=== PATIENT | female | born 1960 | race Caucasian/White ===

== ENCOUNTER 2016-11-09 14:14 | Inpatient (IN) | payer OTHER ==
--- NOTE | ~2016-11-09 | HP ---
History And Physical [id number] [place]. [address] NAME: BRIONNA CAMPUZANO : 60 STATUS : DIS IN PAT#: [id number] AGE: 56 ADM/REG DATE : 11/09/16 MR#: [id number] REPORT SERV DATE: 11/09/16 DICTATED BY: RADHA LUGO DATE: 11/09/16 REPORT STATUS : Draft TRANSCRIBED BY: MODL DATE: 11/09/16 DATE OF ADMISSION: 11/09/2016 CHIEF COMPLAINT: Back pain, nausea, vomiting, hyperglycemia, and dysuria. HISTORY OF PRESENT ILLNESS: The patient is a 55-year-old female. She has a past medical history significant for diabetes, chronic back pain, hyperlipidemia, and hypothyroidism. She presents as a referral from her PCP, who I spoke to earlier today. The patient has had suspected UTI by UA. Culture results are unavailable. She has been tried on Macrobid and most recently Bactrim. For the past several days, her symptoms have not improved. She has had poor p.o. intake, nausea with some vomiting, some diarrhea, subjective fever, and hyperglycemia in the 400 to 500s. She was sent for direct admission for the evaluation and treatment of her UTI, and hyperglycemia. She does have a past history of renal stones. She states that she is not having the intense pain that she had with stones, although she has had some of the dysuria symptoms. No documented temperature at home. She states her blood sugars have been fluctuating for the past several weeks due to her erratic p.o. intake and the presumable UTI. PAST MEDICAL HISTORY: As covered above. PAST SURGICAL HISTORY: She had a toe surgery with resultant Step MRSA, tubal, cholecystectomy, and left wrist surgery. CURRENT MEDICATIONS: Lipitor 40, Flexeril 10 q.6 p.r.n., Neurontin 600 at h.s., hydrocodone 7.5/325 t.i.d., Tresiba 25 at bedtime, Synthroid 200, Imodium 2 mg p.r.n., Glucophage 1000 b.i.d., Pamelor 10, Prilosec 20 b.i.d., Januvia 100, and Bactrim DS. ALLERGIES: PENICILLIN, MORPHINE, CODEINE, ASPIRIN, TRAMADOL, STADOL, AND TORADOL. FAMILY HISTORY: Both parents are , father from lung cancer, and mother from blood clot. SOCIAL HISTORY: She quit tobacco quite a few years ago. Social drinker. REVIEW OF SYSTEMS: HEENT: No complaints. CARDIOVASCULAR: No complaints. PULMONARY: No shortness of breath or cough. GI: As covered in the HPI. : As covered in the HPI. NEUROMUSCULOSKELETAL: As covered in the HPI. Otherwise, 14-point review of systems is negative. PHYSICAL EXAMINATION: VITAL SIGNS: BP 185/86, pulse 87, temperature 97.9, and blood sugars 404. History And Physical [address] [address] NAME: BRIONNA CAMPUZANO : 60 STATUS : DIS IN [facility]#: [id number] AGE: 56 ADM/REG DATE : 11/09/16 MR#: [id number] REPORT SERV DATE: 11/09/16 DICTATED BY: RADHA LUGO DATE: 11/09/16 REPORT STATUS : Draft TRANSCRIBED BY: MODL DATE: 11/09/16 GENERAL: She is awake, alert, and oriented. HEENT: Normocephalic, atraumatic. Sclerae nonicteric. NECK: Supple. HEART: Regular rate and rhythm. LUNGS: Clear to auscultation. ABDOMEN: Obese. Benign. EXTREMITIES: 1+ edema. LABORATORY DATA: No lab or urine cultures to review. ASSESSMENT: 1. Hyperglycemia. 2. Probable urinary tract infection. PLAN: 1. Given the patient's refractory outpatient treatment for hyperglycemia, previous history of stone, we would proceed with re-culture. CT to rule out stone or pyelo. Antibiotics. Awaiting urine cultures. 2. We will treat her hyperglycemia. 3. Full lab, IV fluid if necessary. 4. Continue home medications as appropriate. TLF/MODL Radha Lugo M.D. / [id number] CC: Radha Lugo M.D. [facility] DAILY
--- NOTE | ~2016-11-09 | DS ---
Discharge Summary [id number] [facility] [place]. [address] NAME: BRIONNA CAMPUZANO : 60 STATUS : DIS IN PAT#: [id number] AGE: 56 ADM/REG DATE : 11/09/16 MR#: [id number] REPORT SERV DATE: 11/14/16 DICTATED BY: RADHA LUGO DATE: 11/14/16 REPORT STATUS : Draft TRANSCRIBED BY: MODL DATE: 11/14/16 ADMISSION DATE: 11/09/2016 DISCHARGE DATE: 11/14/2016 FINAL HOSPITAL DIAGNOSES: 1. Urinary tract infection/pyelo, resolved. 2. Diabetes. 3. Hypertension. 4. Hyperlipidemia. CONSULTATIONS: senior health educator. PROCEDURES: CT scan done to rule out stone or pyelo on 11/09/2016 showing no evidence of kidney stone, liver mildly enlarged with some fatty changes, mild atherosclerosis. CURRENT PHYSICAL FINDINGS AND HPI: Please see dictated H and P by myself. In brief, the patient is a 55-year-old female with above history, was accepted as a direct admit from her PCP after failing outpatient treatment for UTI, questioned with severity of symptoms she may have pyelonephritis. Vital signs at the time of admission, BP was 185/86, subsequent blood pressures were averaging 150s to 160s, temp 97.9, and she remained afebrile during her hospital stay, heart rates were in the 70s to 80s. LABORATORY DATA: Initial procalcitonin was 0.08. Initial BMP was unremarkable. Blood sugar, however, was 382. Magnesium was slightly low at 1.2, which was corrected. LFTs were unremarkable. TSH was 4.3, lipase was 102, A1c was 13.1, lactate was 1.4. White count was 7.8 with a normal H and H. Urinalysis actually showed 30 protein, trace LE, 5 wbc's. There were no urine cultures outpatient to review. Her urine culture here was not sent given it was benign and her blood cultures here were negative at four days. HOSPITAL COURSE: The patient was clearly feeling ill and hyperglycemic on admission and also hypertensive. She was initially started on Levaquin for suspicion of failed UTI treatment, rule out pyelo while her CT scan was ordered. A1c and above lab was also ordered. The patient started developing itching after administration of the Levaquin and it was discontinued. Although, her lab work looked fairly benign, there was no CT yet. So, she was given some Benadryl and started on aztreonam. Subsequently, the following day, when her CT scan information was available, the antibiotics were switched back to Bactrim DS as that had been the second treatment that she had been started on outpatient. senior health educator saw her. Her insulin was titrated up. Bladder scan was done to rule out retention. She then in the next hospital day, started developing itching again. It was then determined that, she had received Protonix both times prior to the itching, so this was discontinued. She did require small amount of Phenergan and then had no further nausea, and was able to tolerate a regular diet. Orthostatics were checked after volume replacement, they were fine. senior health educator saw her. They continued to titrate up her insulin, PT assessed her with good results. She was ambulatory. She was started on lisinopril on 11/13/2016 for her hypertension. On 11/14/2016, she was re-evaluated and felt stable for discharge. I discussed several issues with her. She had previously had hypotension with a Prinivil, Discharge Summary [address] [address] NAME: BRIONNA CAMPUZANO : 60 STATUS : DIS IN PAT#: [id number] AGE: 56 ADM/REG DATE : 11/09/16 MR#: [id number] REPORT SERV DATE: 11/14/16 DICTATED BY: RADHA LUGO DATE: 11/14/16 REPORT STATUS : Draft TRANSCRIBED BY: GALI DATE: 11/14/16 diuretic combination, but given her diabetes and her high blood pressures here, she was willing to start the Prinivil back, and her blood pressures were averaging closer to the 140s. I also discussed her A1c, she did not feel her home medications were controlling her sugar. She is agreeable to discharging on the current dose of insulin we are giving here to follow up with her PCP for further advice. So, following Rx is given, Prinivil 10 one per day and Humalog FlexPen. She is currently doing a level 3 plus 12 units meal coverage. She will continue her Lantus, which she has at home, but we will increase the dose to 28 b.i.d. her current dose here. She will otherwise do Lipitor 40, Neurontin 600 at bedtime, Synthroid 100, Pamelor 10, Prilosec 20 b.i.d., Flexeril 10, hydrocodone 7.5/325, and Imodium 2. No further antibiotics were given as she has had not nearly a week of treatment and her symptoms have resolved and pyelo was not demonstrated on the CT. She is to follow up with her PCP in 7 to 10 days. TLF/MODL Radha Lugo M.D. / [id number] CC: Radha Lugo M.D. [facility]
[2016-11-09] MEDS ORDERED: NOR10 PO (14:55)
[2016-11-09] MEDS ORDERED: LIPITOR40 PO (14:55)
[2016-11-09] MEDS ORDERED: SYNTHROID200 MCG PO (14:55)
[2016-11-09] MEDS ORDERED: PRILO PO (14:55)
[2016-11-09] MEDS ORDERED: JANUVIA100 MG PO (14:55)
[2016-11-09] MEDS ORDERED: BACDS PO (14:56)
[2016-11-09] MEDS ORDERED: GLUCOPHAGE1000 MG PO (14:56)
[2016-11-09] MEDS ORDERED: NEUR600 PO (14:56)
[2016-11-09] MEDS ORDERED: IMOD PO (14:57)
[2016-11-09] MEDS ORDERED: TRESIBA FL100 UNIT/1 SC (14:57)
[2016-11-09] MEDS ORDERED: FLEX PO (14:57)
[2016-11-09] MEDS ORDERED: NORCO1 TA2 PO (14:57)
[2016-11-09 16:40] LABS: BASOPHILS 0.8 %; BASOPHILS ABSOLUTE 0.06 10/3/uL (0.0-0.16); EOSINOPHILS 4.7 %; EOSINOPHILS ABSOLUTE 0.37 10/3/uL (0.0-0.53); HEMATOCRIT 35.7 % (36.0-48.0); HEMOGLOBIN 12.1 g/dL (12.0-16.0); IMMATURE GRANULOCYTES 0.3 %; IMMATURE GRANULOCYTES ABSOLUTE 0.02 10/3/uL (0.0-0.11); LYMPHOCYTES 24.8 %; LYMPHOCYTES ABSOLUTE 1.94 10/3/uL (0.67-4.30); MEAN CORPUS HGB CONC 33.9 g/dL (32.0-36.0); MEAN CORPUSCULAR HEMOGLOB 28.9 pg (26.0-34.0); MEAN CORPUSCULAR VOLUME 85.4 fL (80-100); MEAN PLATELET VOLUME 9.3 fL (9.2-13.0); MONOCYTES 6.6 %; MONOCYTES ABSOLUTE 0.52 10/3/uL (0.21-1.20); NEUTROPHILS 62.8 %; NEUTROPHILS ABSOLUTE 4.92 10/3/uL (2.02-8.40); PLATELET COUNT 196 10/3/uL (150-400); RBC DISTRIBUTION WIDTH 13.4 % (12.0-16.0); RED CELL COUNT 4.18 10/6/uL (4.0-5.6); WHITE BLOOD CELLS 7.8 10/3/uL (4.5-10.5)
[2016-11-09 16:42] LABS: MANUAL DIFF NO %
[2016-11-09 16:57] LABS: A/G RATIO 0.7 (0.7-1.9); ALBUMIN 2.9 G/DL (3.5-5.0); ALKALINE PHOSPHATASE 100 U/L (45-117); BUN (BLOOD UREA NITROGEN) 9 MG/DL (6-23); CALCIUM, SERUM 8.1 MG/DL (8.5-10.4); CHLORIDE, SERUM 101 MMOL/L (96-112); CO2 (CARBON DIOXIDE) 31 MMOL/L (24-34); CREATININE 0.76 MG/DL (0.55-1.02); FREE T4 1.19 NG/DL (0.76-1.46); GFR AFRICAN AMERICAN 102 ML/MIN (>=60); GFR NON AFRICAN AMERICAN 88 ML/MIN (>=60); GLOBULIN 3.9 G/DL (2.5-4.1); POTASSIUM, SERUM 3.6 MMOL/L (3.5-5.3); SGOT(AST) 13 U/L (5-40); SGPT(ALT) 15 U/L (5-65); SODIUM, SERUM 139 MMOL/L (135-148); TOTAL BILIRUBIN 0.5 MG/DL (0-1.2); TOTAL PROTEIN 6.8 G/DL (6.0-8.5)
[2016-11-09 16:59] LABS: GLUCOSE, SERUM 382 MG/DL (60-99)
[2016-11-09 17:54] LABS: PROCALCITONIN 0.08 ng/mL (<0.5)
[2016-11-09 19:32] LABS: ASCORBIC ACID (UR NOT ORDER) NEG (NEG); BILIRUBIN, URINE NEGATIVE (NEG); KETONE, URINE NEGATIVE (NEG); LEUKOCYTE ESTERASE(NOT OR TRACE (NEG); WBC (NOT ORDERED) (RFLEX) 5 (0-5)
[2016-11-10 06:22] LABS: BUN (BLOOD UREA NITROGEN) 11 MG/DL (6-23); CALCIUM, SERUM 7.8 MG/DL (8.5-10.4); CHLORIDE, SERUM 103 MMOL/L (96-112); CO2 (CARBON DIOXIDE) 28 MMOL/L (24-34); CREATININE 0.65 MG/DL (0.55-1.02); GFR AFRICAN AMERICAN 116 ML/MIN (>=60); GFR NON AFRICAN AMERICAN 100 ML/MIN (>=60); GLUCOSE, SERUM 326 MG/DL (60-99); POTASSIUM, SERUM 3.5 MMOL/L (3.5-5.3); SODIUM, SERUM 139 MMOL/L (135-148)
[2016-11-11 06:58] LABS: BUN (BLOOD UREA NITROGEN) 8 MG/DL (6-23); CALCIUM, SERUM 7.6 MG/DL (8.5-10.4); CHLORIDE, SERUM 103 MMOL/L (96-112); CO2 (CARBON DIOXIDE) 29 MMOL/L (24-34); CREATININE 0.56 MG/DL (0.55-1.02); GFR AFRICAN AMERICAN 122 ML/MIN (>=60); GFR NON AFRICAN AMERICAN 105 ML/MIN (>=60); GLUCOSE, SERUM 222 MG/DL (60-99); POTASSIUM, SERUM 3.7 MMOL/L (3.5-5.3); SODIUM, SERUM 138 MMOL/L (135-148)
[2016-11-14] MEDS ORDERED: PRIN10 PO (12:14)
[2016-11-14] MEDS ORDERED: HUMALOGPEN SC (12:15)
== END 2016-11-14 14:56 | disposition home or self-care (01) | DRG 690 ==
LOC: 4SO 14:14
PROVIDERS: Internal Medicine
DX: N12 Tubulo-interstitial nephritis, not specified as acute or chronic (principal); E11.65 Type 2 diabetes mellitus with hyperglycemia; I10 Essential (primary) hypertension; Z88.0 Allergy status to penicillin; Z88.5 Allergy status to narcotic agent; Z88.8 Allergy status to other drugs, medicaments and biological substances; Z79.891 Long term (current) use of opiate analgesic; Z79.4 Long term (current) use of insulin; Z79.84 Long term (current) use of oral hypoglycemic drugs; Z86.14 Personal history of Methicillin resistant Staphylococcus aureus infection; Z87.442 Personal history of urinary calculi; G89.29 Other chronic pain; M54.9 Dorsalgia, unspecified; E78.5 Hyperlipidemia, unspecified
CPT/HCPCS: 71020; 74176; 80048; 80053; 81001; 82150; 82962; 83036; 83605; 83690; 83735; 84145; 84439; 84443; 85025; 87040; 97161-GP; A9270-GY; G8978-CI-GP; G8979-CI-GP; G8980-CI-GP; J1956; J2405; J2550